=== PATIENT | female | born 1970 | race Caucasian/White ===

== ENCOUNTER 2016-10-01 11:29 | Emergency (ER) | payer OTHER ==
[~2016-10-01] VITALS: Ht 170.2 cm; Wt 61.8 kg
[2016-10-01 12:21] VITALS: BP 88/74
== END 2016-10-01 12:15 | disposition home or self-care (01) ==
LOC: ED 11:33
DX: S93.692A Other sprain of left foot, initial encounter (principal); W50.0XXA Accidental hit or strike by another person, initial encounter; Y93.83 Activity, rough housing and horseplay; Y92.009 Unspecified place in unspecified non-institutional (private) residence as the place of occurrence of the external cause
CPT/HCPCS: 99282